=== PATIENT | female | born 1985 | race Caucasian/White ===

== ENCOUNTER → 2024-01-15 | Outpatient (CLI) | payer BC | END | disposition home or self-care (01) | LOC: Rad HDHVI 14:26 | PROVIDERS: ATTEND Internal Medicine Cardiovascular Disease | DX: M79.672 Pain in left foot (principal) | CPT/HCPCS: 73630 ==

== ENCOUNTER → 2024-01-29 | Outpatient (CLI) | payer BC ==
[2024-01-29 12:57] LABS: Creatinine, Urine 88.73 mg/dL (30.0-125.0)
[2024-01-29 13:00] LABS: Alanine Aminotransferase 103 U/L (7-40); Albumin 4.2 g/dL (3.2-4.8); Alkaline Phosphatase 125 U/L (46-116); Anion Gap 5 (5-15); Aspartate Aminotransferase 236 U/L (13-40); BUN/Creatinine Ratio 10.9 (10.0-20.0); Bilirubin, Total 1.5 mg/dL (0.2-1.0); Blood Urea Nitrogen 7 mg/dL (9-23); Calcium 9.5 mg/dL (8.5-10.1); Carbon Dioxide 24 mmol/L (20-30); Chloride 106 mmol/L (98-107); Cholesterol 159 mg/dL (< 200); Glucose 108 mg/dL (74-106); HDL Cholesterol 72 mg/dL (40-59); LDL Cholesterol 74 mg/dL (< 100); Sodium 135 mmol/L (136-145); Total Protein 6.9 g/dL (5.7-8.2); Triglycerides 137 mg/dL (< 150)
== END | disposition home or self-care (01) ==
LOC: LAB 11:37
PROVIDERS: ATTEND Internal Medicine
DX: E11.9 Type 2 diabetes mellitus without complications (principal)
CPT/HCPCS: 36415; 80053; 80061; 82043; 82570; 83036

== ENCOUNTER → 2024-01-31 | Outpatient (CLI) | payer BC ==
[2024-01-31 12:31] LABS: Leuteinizing Hormone 18.3 IU/L
[2024-01-31 12:32] LABS: Albumin 4.1 g/dL (3.2-4.8); Bilirubin, Direct 0.3 mg/dL (<0.3); Bilirubin, Total 0.6 mg/dL (0.2-1.0); Follicle Stimulating Hormone 7.05 IU/L (SEE BELOW); Prolactin 24.28 ng/mL (2.8-29.2); Total Protein 6.5 g/dL (5.7-8.2)
[2024-01-31 12:50] LABS: Folate (Folic Acid) > 48.00 ng/mL (>5.38)
[2024-02-01 08:06] LABS: RPR Non Reactive (Non Reactive)
== END | disposition home or self-care (01) ==
LOC: LAB 11:02
PROVIDERS: ATTEND Internal Medicine
DX: I10 Essential (primary) hypertension (principal); E11.9 Type 2 diabetes mellitus without complications; G90.522 Complex regional pain syndrome I of left lower limb; M94.20 Chondromalacia, unspecified site
CPT/HCPCS: 36415; 80076; 82607; 82672; 82746; 83001; 83002; 84144; 84146; 84403; 84443; 86592

== ENCOUNTER 2024-03-08 04:48 | Emergency (ER) | payer BC ==
[~2024-03-08] VITALS: Ht 160 cm; Wt 70.0 kg
[2024-03-08 05:44] VITALS: BP 141/84; PULSE 110; RESP 18; TEMP 98.3; O2SAT 99
[2024-03-08] MEDS ORDERED: ACE3T PO (05:44)
[2024-03-08] MEDS: ACETAMINOPHEN/CODEINE#3 (300/30mg) TAB PO ONE (05:48)
== END 2024-03-08 05:58 | disposition home or self-care (01) ==
LOC: ER 04:48
DX: S82.402A Unspecified fracture of shaft of left fibula, initial encounter for closed fracture (principal); E11.9 Type 2 diabetes mellitus without complications; K21.9 Gastro-esophageal reflux disease without esophagitis; E78.5 Hyperlipidemia, unspecified; I10 Essential (primary) hypertension; Z91.040 Latex allergy status; Z88.6 Allergy status to analgesic agent; Z88.1 Allergy status to other antibiotic agents; Z88.8 Allergy status to other drugs, medicaments and biological substances; W19.XXXA Unspecified fall, initial encounter; Y93.89 Activity, other specified; Y92.89 Other specified places as the place of occurrence of the external cause; Y99.8 Other external cause status
CPT/HCPCS: 29515; 73610

== ENCOUNTER → 2024-04-10 | Outpatient (CLI) | payer BC ==
[~2024-04-10] MED LIST: ACE3T PO
== END | disposition home or self-care (01) ==
LOC: LAB 11:03
PROVIDERS: ATTEND Internal Medicine
DX: R06.02 Shortness of breath (principal)
CPT/HCPCS: 36415; 85379

== ENCOUNTER → 2024-07-21 | Outpatient (CLI) | payer BC ==
[2024-07-21 14:04] LABS: HDL Cholesterol 44 mg/dL (40-59)
[2024-07-21 14:15] LABS: Micro Albumin < 3.0 mg/L (<30.0)
[2024-07-21 14:23] LABS: Folate (Folic Acid) 34.86 ng/mL (>5.38)
[2024-07-21 14:33] LABS: Erythrocyte Sedimentation Rate 5 mm/hr (0-20)
[2024-07-21 14:36] LABS: Cholesterol 263 mg/dL (< 200); Triglycerides 407 mg/dL (< 150)
[2024-07-21 16:04] LABS: Creatinine, Urine 58.92 mg/dL (30.0-125.0)
== END | disposition home or self-care (01) ==
LOC: LAB 13:01
PROVIDERS: ATTEND Internal Medicine
DX: I10 Essential (primary) hypertension (principal); E11.9 Type 2 diabetes mellitus without complications; E78.5 Hyperlipidemia, unspecified; N93.9 Abnormal uterine and vaginal bleeding, unspecified; N94.9 Unspecified condition associated with female genital organs and menstrual cycle
CPT/HCPCS: 36415; 80061; 82043; 82570; 82607; 82746; 83036; 84443; 85652

== ENCOUNTER → 2024-09-01 | Outpatient (CLI) | payer BC ==
[2024-09-01 12:42] LABS: Alanine Aminotransferase 12 U/L (7-40); Albumin 4.5 g/dL (3.2-4.8); Alkaline Phosphatase 85 U/L (46-116); Anion Gap 5 (5-15); BUN/Creatinine Ratio 16.3 (10.0-20.0); Blood Urea Nitrogen 14 mg/dL (9-23); Calcium 9.8 mg/dL (8.7-10.4); Carbon Dioxide 28 mmol/L (20-31); Chloride 105 mmol/L (98-107); Glucose 85 mg/dL (74-106); HDL Cholesterol 51 mg/dL (40-59); Potassium 3.8 mmol/L (3.5-5.1); Sodium 138 mmol/L (136-145)
[2024-09-01 12:43] LABS: Bilirubin, Total 0.3 mg/dL (0.2-1.0); Total Protein 6.7 g/dL (5.7-8.2)
[2024-09-01 12:54] LABS: Aspartate Aminotransferase 10 U/L (13-40); Bilirubin, Direct < 0.1 mg/dL (<0.3); Cholesterol 211 mg/dL (< 200); LDL Cholesterol 132 mg/dL (< 100); Triglycerides 344 mg/dL (< 150)
== END | disposition home or self-care (01) ==
LOC: LAB 11:19
PROVIDERS: ATTEND Internal Medicine
DX: E11.9 Type 2 diabetes mellitus without complications (principal); D64.9 Anemia, unspecified
CPT/HCPCS: 36415; 80048; 80061; 80076; 82306

== ENCOUNTER → 2024-09-15 | Outpatient (CLI) | payer BC ==
[2024-09-15 14:01] LABS: Follicle Stimulating Hormone 2.67 IU/L (SEE BELOW); Leuteinizing Hormone 2.2 IU/L
[2024-09-15 14:02] LABS: Alanine Aminotransferase 19 U/L (7-40); Alkaline Phosphatase 86 U/L (46-116); Aspartate Aminotransferase 26 U/L (13-40); Bilirubin, Total 0.4 mg/dL (0.2-1.0); Total Protein 7.4 g/dL (5.7-8.2)
[2024-09-15 14:06] LABS: Bilirubin, Direct < 0.1 mg/dL (<0.3)
== END | disposition home or self-care (01) ==
LOC: LAB 12:36
PROVIDERS: ATTEND Internal Medicine
DX: E28.2 Polycystic ovarian syndrome (principal); E78.5 Hyperlipidemia, unspecified
CPT/HCPCS: 36415; 80076; 82670; 82672; 83001; 83002; 84402; 84403

== ENCOUNTER 2024-10-08 23:59 | Inpatient (IN) | payer BC ==
[~2024-10-08] VITALS: Ht 177.8 cm; Wt 109.0 kg
[2024-10-09] VITALS (11 sets, daily range): BP systolic 100–110; BP diastolic 54–66; PULSE 69–112; RESP 16–22; TEMP 97.8; O2SAT 91–99
--- NOTE | 2024-10-09 00:42 | ED.PDOC ---
SOB-HPI HPI Comments 39 year old female presents to the ED with a chief complaint of shortness of breath onset 3 days. Patient states she began experiencing shortness of breath 3 days ago and noticed it worsen today. She also noted chest pain, described as a tightness sensation. Patient used father in law's albuterol inhaler with no relief of symptoms, states O2 sat at home was in the 80s, HR 163. BP has been low past couple days, last BP was 70/40, has not taken HTN medication due to low BP. Upon ED arrival, O2 sat was 88% RA, placed 2L NC improved to 93%. PMHx HTN, HLD, DM, Gerd. Denies nausea, vomiting, diarrhea, dizziness, headache, blurry vision, abdominal pain, fever, chills. No other symptoms or modifying factors present at this time. Chief Complaint: Shortness of Breath Time Seen by MD: 00:29 Primary Care Provider: Dr. Esteban Reviewed notes: Medications, Allergies Information Source: Patient, Spouse Mode of Arrival: Wheelchair Severity: Moderate Timing: Days Duration: Since onset Context: At Rest PE Risk Factors: None History of: None Prehospital treatment: None Modifying Factors: Nothing Associated Signs and Symptoms: Chest Pain Quality: Tightness Radiation: No Radiation Past Medical History PAST MEDICAL HISTORY: DM, GERD, High Lipids, HTN Surgical History: Denies all surgeries BRICK LOADER History: No Pertinent BRICK LOADER History Family History Family History: Reviewed,noncontributory to illness, No family hx of Cancer, No family hx of DM, No family hx of Heart zan, No family hx of HTN, No family hx ofKidney zan, No family hx of Liver zan, No family hx of Lung zan, No family hx of Stroke Social History Smoker: Non-Smoker Alcohol: Denies ETOH Use Drugs: Denies Drug Use Lives In: Home Constitutional: denies: chills, diaphoresis, fatigue, fever, malaise, sweats, weakness, others EENTM: denies: blurred vision, double vision, ear bleeding, ear discharge, ear drainage, ear pain, ear ringing, eye pain, eye redness, hearing loss, mouth pain, mouth swelling, nasal discharge, nose bleeding, nose congestion, nose pain, photophobia, tearing, throat pain, throat swelling, voice changes, others Respiratory: reports: shortness of breath; denies: cough, hemoptysis, orthopnea, SOB at rest, SOB with excertion, stridor, wheezing, others Cardiovascular: reports: chest pain; denies: dizzy spells, diaphoresis, Dyspnea on exertion, edema, irregular heart beat, left arm pain, lightheadedness, palpitations, PND, syncope, others Gastrointestinal: denies: abdomen distended, abdominal pain, blood streaked bowels, constipated, diarrhea, dysphagia, difficulty swallowing, hematemesis, melena, nausea, poor appetite, poor fluid intake, rectal bleeding, rectal pain, vomiting, others Genitourinary: denies: abnormal vagina bleeding, burning, dyspareunia, dysuria, flank pain, frequency, hematuria, incontinence, pain, , vagina discharge, urgency, others Neurological: denies: dizziness, fainting, headache, left sided numbness, left sided weakness, numbness, paresthesia, pre-existing deficit, right sided numbness, right sided weakness, seizure, speech problems, tingling, tremors, weakness, others Musculoskeletal: denies: back pain, gout, joint pain, joint swelling, muscle pain, muscle stiffness, neck pain, others Integumetry: denies: bruises, change in color, change in hair/nails, dryness, laceration, lesions, lumps, rash, wounds, others Allergic/Immunocompromised: denies: Difficulty Healing, Frequent Infections, Hives, Itching, others Hematologic/Lymphatic: denies: anemia, blood clots, easy bleeding, easy bruising, swollen glands, others Endocrine: denies: excessive hunger, excessive sweating, excessive thirst, excessive urination, flushing, intolerance to cold, intolerance to heat, unexplained weight gain, unexplained weight loss, others Psychiatric: denies: anxiety, bipolar disorder, depression, hopeless, panic disorder, schizophrenia, sleepless, suicidal, others All Other Systems: Reviewed and Negative Physical Exam General Appearance: No Apparent Distress, Normal HEENT: Normal ENT Inspection, Pharynx Normal, TMs Normal Neck: Full Range of Motion, Non-Tender, Normal, Normal Inspection Respiratory: Chest Non-Tender, Lungs Clear, No Accessory Muscle Use, No Respiratory Distress, Normal Breath Sounds Cardiovascular: No Edema, No JVD, No Murmur, No Gallop, Normal Peripheral Pulses, Regular Rate/Rhythm Breast Exam: Deferred Gastrointestinal: No Organomegaly, Non Tender, No Pulsatile Mass, Normal Bowel Sounds, Soft Genitalia: Deferred Pelvic: Deferred Rectal: Deferred Extremities: No calf tenderness, Normal capillary refill, Normal inspection, Normal range of motion, Non-tender, No pedal edema Musculoskeletal : Apperance: Normal Neurologic: Alert, data miner II-XII nml as Tested, No Motor Deficits, Normal Affect, Normal Mood, No Sensory Deficits Cerebellar Function: Normal Reflexes: Normal Skin: Dry, Normal Color, Warm Lymphatic: No Adenopathy Was a procedure done? Was a procedure done?: No Differential Dx Differential Diagnosis: CHF, URI, Other Comments Differential diagnosis includes but is not limited to: asthma, pneumonia, congestive heart failure, pleural effusion, empyema, pulmonary embolus, and others X-Ray, Labs, Meds, VS Vital Signs Date Time Temp Pulse Resp B/P (MAP) Pulse Ox O2 Delivery O2 Flow Rate FiO2 10/09/24 00:37 18 88 Room Air* 0 21 10/09/24 00:27 123 10/09/24 00:24 98.8 126 18 112/59 (76) 88 Lab Test 10/09/24 01:44 10/09/24 00:48 10/09/24 00:32 Range/Units Troponin I High Sensitivity 6 5 </=34 ng/L White Blood Count 9.1 4.4-10.8 10^3/uL Red Blood Count 3.50 L 4.0-5.20 10^6/uL Hemoglobin 11.5 L 12.2-16.2 g/dL Hematocrit 34.5 L 36.0-46.0 % Mean Corpuscular Volume 98.7 80.0-100.0 fL Mean Corpuscular Hemoglobin 32.9 H 28.0-32.0 pg Mean Corpuscular Hemoglobin Concent 33.3 32.0-36.0 g/dL Red Cell Distribution Width 12.8 11.8-14.3 % Platelet Count 191 140-450 10^3/uL Mean Platelet Volume 7.8 6.9-10.8 fL Neutrophils (%) (Auto) 82.7 H 37.0-80.0 % Lymphocytes (%) (Auto) 8.0 L 10.0-50.0 % Monocytes (%) (Auto) 7.3 0.0-12.0 % Eosinophils (%) (Auto) 1.4 0.0-7.0 % Basophils (%) (Auto) 0.6 0.0-2.0 % Neutrophils # (Auto) 7.5 1.6-8.6 10 ^3/uL Lymphocytes # (Auto) 0.7 0.4-5.4 10 ^3/uL Monocytes # (Auto) 0.7 0-1.3 10 ^3/uL Eosinophils # (Auto) 0.1 0-0.8 10 ^3/uL Basophils # (Auto) 0.1 0-0.2 10 ^3/uL Nucleated Red Blood Cells 0.0 % Prothrombin Time 10.2 9.3-11.8 sec Prothrombin Time INR 0.96 0.9-1.15 Activated Partial Thromboplast Time 32.8 24.5-34.5 SEC D-Dimer, Quantitative < 0.19 0.0-0.49 mg/L FEU Sodium Level 133 L 136-145 mmol/L Potassium Level 3.9 3.5-5.1 mmol/L Chloride Level 102 98-107 mmol/L Carbon Dioxide Level 21 20-31 mmol/L Anion Gap 10 5-15 Blood Urea Nitrogen 13 9-23 mg/dL Creatinine 0.82 0.550-1.02 mg/dL Glomerular Filtration Rate Calc 93 >90 mL/min BUN/Creatinine Ratio 15.9 10.0-20.0 Serum Glucose 159 H 74-106 mg/dL Calcium Level 9.9 8.7-10.4 mg/dL Total Bilirubin 0.7 0.2-1.0 mg/dL Aspartate Amino Transferase (AST) 9 L 13-40 U/L Alanine Aminotransferase (ALT) 15 7-40 U/L Alkaline Phosphatase 74 46-116 U/L B-Type Natriuretic Peptide 479.68 0-100 pg/mL Total Protein 6.9 5.7-8.2 g/dL Albumin 4.7 3.2-4.8 g/dL Beta HCG, Quantitative 1.3 L 1.5-4.2 mIU/mL Influenza Type A Antigen Negative Negative Influenza Type B Antigen Negative Negative SARS-CoV-2 Antigen (Rapid) Negative NEGATIVE [facility] [id number] [place] [id number] Ph: [phone] DIAGNOSTIC IMAGING Diagnostic Imaging Report : [id number] Signed PATIENT: MAGALY CALZADA ACCT: [id number] UNIT: [id number] : 1985 LOC: ER ROOM / BED: / AGE / SEX: 39 / F ADM STATUS: REG ER SERVICE ORDERING PHYSICIAN: DANY DUMONT MD PROCEDURE(s): CXRP - CHEST PORTABLE REASON: SOB ORDER NUMBER(s): [id number], ACCESSION NUMBER(s): [id number] CHEST RADIOGRAPH Indication: SOB Technique: Single frontal view of the chest was obtained COMPARISON: None FINDINGS: Lines and Tubes: None Lungs: There are infiltrates in the left upper and lower lobes and right lower lobe consistent with pneumonia. Pleura: No effusion. No pneumothorax. Cardiomediastinal contours: Unremarkable Bones: Unremarkable IMPRESSION: Infiltrates in e left upper and lower lobes and right lower lobe consistent with pneumonia. ATED BY: MEÑO METCALF MD DICTATED DATE/TIME: 10/09/24118 SIGNED BY: MEÑO METCALF MD SIGNED DATE/TIME: 10/09/24118 CC: Time of 1ST Reevaluation: 00:59 Reevaluation 1ST: Unchanged Time of 2ND Reevaluation: 02:37 Reevaluation 2ND: Unchanged Patient Education/Counseling: Diagnosis, Treatment, Prognosis Family Education/Counseling: Diagnosis, Treatment, Prognosis Additional Information The following tests were ordered, and results were reviewed by me: TROP -x3, CBC, CMP, BNP, PTPTT, D-DIMER, XY CHEST, BETA HCG, COVID, RAPID INFLUENZA A&B Additional Information was gathered from interviewing the following independent historians: I reviewed and agreed with the following test results read by other providers: xy chest I discussed treatment and results with medical personnel and: patient, Departure 1 Departure Time of Disposition: 02:37 Impression: Primary Impression: Respiratory failure with hypoxia Additional Impression: Multifocal pneumonia Disposition: ADMITTED INPATIENT Admit to: Med Surg (39-year-old female) Condition: Guarded Comments Shortness of Breath with Hypoxia Chief Complaint: Shortness of breath History of Present Illness: 39-year-old female presents to the Emergency Department with complaints of shortness of breath. Patient has been monitoring her oxygen levels at home with a personal pulse oximeter, noting low readings. Upon arrival to the ED, she was found to be hypoxic with oxygen saturations in the 80s on room air, requiring supplemental oxygen via nasal cannula which improved her saturations to the mid- 90s. Review of Systems: Respiratory: Positive for shortness of breath All other systems reviewed and negative Vital Signs: O2 Saturation: 80s% on room air O2 Saturation: mid-90s% on nasal cannula Physical Exam: Limited physical exam details available from ict business analyst Lab Results: Laboratory workup reported as unremarkable Imaging and Other Relevant Results: Chest X-ray: - Demonstrates multifocal pneumonia - Bilateral patchy infiltrates noted Medical Decision Making: Summary Statement: 39-year-old female presenting with shortness of breath and hypoxia, found to have bilateral multifocal pneumonia on chest imaging. Problem List: 1. Acute hypoxic respiratory failure, 2. Bilateral multifocal pneumonia Differential Diagnosis: Community-acquired pneumonia, COVID-19 pneumonia, Atypical pneumonia, Viral pneumonia ED Course: Patient required supplemental oxygen via nasal cannula. Started on IV antibiotics (Rocephin and azithromycin). Decision made to admit for respiratory failure and pneumonia treatment. Assessment and Plan: 1. Acute Hypoxic Respiratory Failure: - Continue supplemental oxygen via nasal cannula - Monitor oxygen saturation - Admission to hospital for close monitoring 2. Bilateral Multifocal Pneumonia: - Initiated IV Rocephin and azithromycin - Requires inpatient management - Will need serial chest imaging to monitor progression Disposition: Admit to hospital Billing Information: ICD-10: J18.9 - Pneumonia, unspecified organism ICD-10: J96.01 - Acute respiratory failure with hypoxia Critical Care Note Critical Care Time?: Yes (35 min-critical care time only) Critical care comment: Total critical care time: Approximately 36 minutes Due to a high probability of clinically significant, life threatening deterioration, the patient required my highest level of preparedness to intervene emergently and I personally spent this critical care time directly and personally managing the patient. This critical care time included obtaining a history; examining the patient; pulse oximetry; ordering and review of studies; arranging urgent treatment with development of a management plan; evaluation of patient's response to treatment; frequent reassessment; and, discussions with other providers. This critical care time was performed to assess and manage the high probability of imminent, life-threatening deterioration that could result in multi-organ failure. It was exclusive of separately billable procedures and treating other patients. Stability Stability form required: No Heart Score Heart Score: Heart Score Response (Comments) Value History Slightly Suspicious 0 EKG Normal 0 Age <45 0 Risk Factors 1 or 2 risk factors 1 Troponin Normal limit 0 Total 1 I personally scribed for DANY DUMONT MD ([email or web address]) on 10/09/24 at 00:42. Electronically submitted by Sandra Branch ([email or web address]). I personally scribed for DANY DUMONT MD ([email or web address]) on 10/09/24 at 00:47. Electronically submitted by Sandra Branch ([email or web address]). I personally scribed for DANY DUMONT MD ([email or web address]) on 10/09/24 at 02:24. Electronically submitted by Sandra Branch ([email or web address]). DANY DUMONT MD Oct 09, 2024 00:42
[2024-10-09 01:21] LABS: COVID19 ANTIGEN SOFIA FIA NEGATIVE (NEGATIVE)
--- NOTE | 2024-10-09 01:21 | DVH ---
CHEST RADIOGRAPH Indication: SOB Technique: Single frontal view of the chest was obtained COMPARISON: None FINDINGS: Lines and Tubes: None Lungs: There are infiltrates in the left upper and lower lobes and right lower lobe consistent with p neumonia. Pleura: No effusion. No pneumothorax. Cardiomediastinal contours: Unremarkable Bones: Unremarkable IMPRESSION: Infiltrates in e left upper and lower lobes and right lower lobe consistent with pneumonia.
[2024-10-09 01:22] LABS: Rapid Influenza A Negative (Negative); Rapid Influenza B Negative (Negative)
[2024-10-09 01:33] LABS: INR 0.96 (0.9-1.15); Partial Thromboplastin Time 32.8 SEC (24.5-34.5); Prothrombin Time 10.2 sec (9.3-11.8)
[2024-10-09 01:35] LABS: Alanine Aminotransferase 15 U/L (7-40); Albumin 4.7 g/dL (3.2-4.8); Alkaline Phosphatase 74 U/L (46-116); Anion Gap 10 (5-15); BUN/Creatinine Ratio 15.9 (10.0-20.0); Blood Urea Nitrogen 13 mg/dL (9-23); Calcium 9.9 mg/dL (8.7-10.4); Carbon Dioxide 21 mmol/L (20-31); Chloride 102 mmol/L (98-107); Potassium 3.9 mmol/L (3.5-5.1)
[2024-10-09 01:36] LABS: Bilirubin, Total 0.7 mg/dL (0.2-1.0); Total Protein 6.9 g/dL (5.7-8.2)
[2024-10-09 01:37] LABS: Aspartate Aminotransferase 9 U/L (13-40); Glucose 159 mg/dL (74-106); Sodium 133 mmol/L (136-145)
[2024-10-09 01:51] LABS: Basophils # (auto) 0.1 10 ^3/uL (0-0.2); Basophils % (auto) 0.6 % (0.0-2.0); Eosinophils # (auto) 0.1 10 ^3/uL (0-0.8); Eosinophils % (auto) 1.4 % (0.0-7.0); Hematocrit 34.5 % (36.0-46.0); Hemoglobin 11.5 g/dL (12.2-16.2); Lymphocytes # (auto) 0.7 10 ^3/uL (0.4-5.4); Mean Corpuscular Hemoglobin 32.9 pg (28.0-32.0); Mean Corpuscular Hgb Conc. 33.3 g/dL (32.0-36.0); Mean Corpuscular Volume 98.7 fL (80.0-100.0); Monocytes # (auto) 0.7 10 ^3/uL (0-1.3); Monocytes % (auto) 7.3 % (0.0-12.0); Neutrophils # (auto) 7.5 10 ^3/uL (1.6-8.6); Neutrophils % (auto) 82.7 % (37.0-80.0); Platelet Count (auto) 191 10^3/uL (140-450); Red Cell Distribution Width 12.8 % (11.8-14.3); White Blood Cell 9.1 10^3/uL (4.4-10.8)
[2024-10-09] MEDS: cefTRIAXone 1GM/50ML D5W 50 ML IV ONE (03:39)
[2024-10-09] MEDS: SODIUM CHLORIDE 0.9% 1,000 ML IV ONE (03:39)
[2024-10-09] MEDS ORDERED: DEXTROSE (50%) 50ML SYRG IV PRN ×2 (04:30→12:30)
[2024-10-09] MEDS ORDERED: ONDANSETRON HCL 4 MG/2 ML VIAL IV PRN (04:30)
[2024-10-09] MEDS: AZITHROMYCIN 500MG/ 250ML 250 ML IV ONE (04:37)
--- NOTE | 2024-10-09 04:54 | DVHHP2 ---
History of Present Illness Reason for Visit: Shortness of breaths History of Present Illness 39-year-old female presents for evaluation of shortness for breath. Patient presents with having shortness for breath over the past three days with associated chest tightness and a nonproductive cough. Patient also reports having low blood pressure over the past day. Denies fever or chills. No nausea or vomiting. No other acute complaints. Past Medical History Dyslipidemia, hypertension, GERD, diabetes mellitus Past Surgical History Denies Family History Noncontributory Smoke: No ALCOHOL: none Drugs: None Lives: with Family Review of Systems Review of Systems Review of systems are currently negative otherwise addressed in HPI. Allergies: Coded Allergies: Acetaminophen (Verified Allergy, Unknown, 03/08/24) Clindamycin (Verified Allergy, Unknown, 03/08/24) Hydrocodone (Verified Allergy, Unknown, 03/08/24) Latex (Verified Allergy, Unknown, 03/08/24) Losartan (Verified Allergy, Unknown, 03/08/24) Medications Current Medications Medications Dose Ordered Sig/Scott Route Start Time Stop Time Status Last Admin Dose Admin Ceftriaxone Sodium 50 ml @ 100 mls/hr DAILY@09 IV 10/10/24 09:00 Azithromycin 250 ml @ 125 mls/hr DAILY IV 10/10/24 10:00 Apixaban 2.5 mg BID PO 10/09/24 10:00 Gabapentin 400 mg TID PO 10/09/24 06:00 Levetiracetam 1,000 mg BID PO 10/09/24 10:00 Albuterol 2.5 mg Q6HPRN PRN NEB 10/09/24 04:30 Diagnostic Test (Pha) 1 strip Q6HR 10/09/24 06:00 Insulin Human Regular Q6HR SC 10/09/24 06:00 Dextrose 50 ml UD PRN IV 10/09/24 04:30 Ondansetron HCl 4 mg Q4HP PRN IV 10/09/24 04:30 Exam Vital Signs Vital Signs Date Time Temp Pulse Resp B/P (MAP) Pulse Ox O2 Delivery O2 Flow Rate FiO2 10/09/24 03:51 97.6 69 18 96/58 (71) 95 97.6 10/09/24 03:51 Room Air* 0 21 Exam Gen: 39-year-old female in mild distress Skin: Warm, dry, normal color and texture, no rash. HEENT: Normocephalic atraumatic, mucous membranes moist and pink. Neck: Cervical and supraclavicular nodes normal without enlargement, trachea is midline, thyroid gland is normal without masses. Pulmonary: Bilateral rhonchi Cardiac: Regular rate and rhythm. No murmur Abdomen: Soft, nontender, nondistended, bowel sounds present all 4 quadrants, no guarding, no rigidity, no organomegaly. Extremities: No cyanosis, clubbing, no edema Neuro: Cranial nerves II through XII grossly intact, normal affect and speech, no focal motor deficits. Labs/Xrays ORDERING PHYSICIAN: DANY DUMONT MD PROCEDURE(s): CXRP - CHEST PORTABLE REASON: SOB ORDER NUMBER(s): [id number], ACCESSION NUMBER(s): [id number] CHEST RADIOGRAPH Indication: SOB Technique: Single frontal view of the chest was obtained COMPARISON: None FINDINGS: Lines and Tubes: None Lungs: There are infiltrates in the left upper and lower lobes and right lower lobe consistent with pneumonia. Pleura: No effusion. No pneumothorax. Cardiomediastinal contours: Unremarkable Bones: Unremarkable IMPRESSION: Infiltrates in e left upper and lower lobes and right lower lobe consistent with pneumonia. Labs Test 10/09/24 02:40 10/09/24 01:44 10/09/24 00:48 10/09/24 00:32 Range/Units Lactic Acid Level 1.6 0.4-2.0 mmol/L Troponin I High Sensitivity 6 </=34 ng/L White Blood Count 9.1 4.4-10.8 10^3/uL Red Blood Count 3.50 L 4.0-5.20 10^6/uL Hemoglobin 11.5 L 12.2-16.2 g/dL Hematocrit 34.5 L 36.0-46.0 % Mean Corpuscular Volume 98.7 80.0-100.0 fL Mean Corpuscular Hemoglobin 32.9 H 28.0-32.0 pg Mean Corpuscular Hemoglobin Concent 33.3 32.0-36.0 g/dL Red Cell Distribution Width 12.8 11.8-14.3 % Platelet Count 191 140-450 10^3/uL Mean Platelet Volume 7.8 6.9-10.8 fL Neutrophils (%) (Auto) 82.7 H 37.0-80.0 % Lymphocytes (%) (Auto) 8.0 L 10.0-50.0 % Monocytes (%) (Auto) 7.3 0.0-12.0 % Eosinophils (%) (Auto) 1.4 0.0-7.0 % Basophils (%) (Auto) 0.6 0.0-2.0 % Neutrophils # (Auto) 7.5 1.6-8.6 10 ^3/uL Lymphocytes # (Auto) 0.7 0.4-5.4 10 ^3/uL Monocytes # (Auto) 0.7 0-1.3 10 ^3/uL Eosinophils # (Auto) 0.1 0-0.8 10 ^3/uL Basophils # (Auto) 0.1 0-0.2 10 ^3/uL Nucleated Red Blood Cells 0.0 % Prothrombin Time 10.2 9.3-11.8 sec Prothrombin Time INR 0.96 0.9-1.15 Activated Partial Thromboplast Time 32.8 24.5-34.5 SEC D-Dimer, Quantitative < 0.19 0.0-0.49 mg/L FEU Sodium Level 133 L 136-145 mmol/L Potassium Level 3.9 3.5-5.1 mmol/L Chloride Level 102 98-107 mmol/L Carbon Dioxide Level 21 20-31 mmol/L Anion Gap 10 5-15 Blood Urea Nitrogen 13 9-23 mg/dL Creatinine 0.82 0.550-1.02 mg/dL Glomerular Filtration Rate Calc 93 >90 mL/min BUN/Creatinine Ratio 15.9 10.0-20.0 Serum Glucose 159 H 74-106 mg/dL Calcium Level 9.9 8.7-10.4 mg/dL Total Bilirubin 0.7 0.2-1.0 mg/dL Aspartate Amino Transferase (AST) 9 L 13-40 U/L Alanine Aminotransferase (ALT) 15 7-40 U/L Alkaline Phosphatase 74 46-116 U/L B-Type Natriuretic Peptide 479.68 0-100 pg/mL Total Protein 6.9 5.7-8.2 g/dL Albumin 4.7 3.2-4.8 g/dL Beta HCG, Quantitative 1.3 L 1.5-4.2 mIU/mL Influenza Type A Antigen Negative Negative Influenza Type B Antigen Negative Negative SARS-CoV-2 Antigen (Rapid) Negative NEGATIVE Assessment/Plan Assessment/Plan Assessment Multifocal pneumonia Hypotension Diabetes mellitus Early sepsis Plan Admit the patient to Med surge to the hospitalist Resume home medications Rocephin/azithromycin Med nebs Continue treatment per orders. Plan discussed with: Patient My Orders Orders - LORENA PATEL Procedure Category Date Status Time Basic Metabolic Panel LAB 10/10/24 Verified 04:00 Apixaban (Eliquis) PHA 10/09/24 In Process 10:00 Gabapentin Capsule PHA 10/09/24 In Process (Neurontin Capsule) 06:00 Consistent DIET 10/09/24 Transmitted Carb(Ccho)Diabetes Breakfast Levetiracetam Tablet PHA 10/09/24 In Process (Keppra Tablet) 10:00 Albuterol Medneb PHA 10/09/24 In Process (Ventolin Medneb) 04:30 Glucose Blood PHA 10/09/24 In Process (Accu-Chek Comfort 06:00 Insulin R (Human) PHA 10/09/24 In Process (Insulin R) 06:00 Dextrose 50% Syringe PHA 10/09/24 In Process 04:30 Admit ADMIT 10/09/24 Transmitted 04:25 Ondansetron Hcl PHA 10/09/24 In Process (Zofran) 04:30 Complete Blood Count LAB 10/10/24 Verified 04:00 Condition: Stable MARCOS 10/09/24 In Process 04:25 Bedrest With Bathroom MARCOS 10/09/24 In Process Privileg 04:25 Sodium Chloride 0.9% PHA 10/09/24 In Process 04:30 Ceftriaxone 1gm/50ml PHA 10/10/24 In Process D5w (Rocephin) 09:00 Azithromycin 500mg/ PHA 10/10/24 In Process 250ml (Zithromax 50 10:00 Date of Service: Oct 09, 2024 Billing Provider: LORENA PATEL Common Visit Codes: [id number] INP/OBS CARE (HIGH) LORENA PATEL Oct 09, 2024 04:54
[2024-10-09] MEDS: InsuLIN REG 1unit/0.01ml Soln (100units/ml) SC SCH ×2 (06:00→17:14)
[2024-10-09] MEDS: SODIUM CHLORIDE 0.9% 500 ML IV ONE (06:10)
[2024-10-09] MEDS: ACCU-CHEK COMFORT CURVE STRIP VI SCH ×2 (06:15→17:14)
[2024-10-09] MEDS: GABAPENTIN 400 MG CAP PO SCH (06:21)
[2024-10-09] MEDS: ALBUTEROL SULF 2.5 MG/0.5ML(0.5%) NEB SOLN NEB PRN (07:38)
[2024-10-09 08:54] LABS: Urine Bacteria FEW /hpf (None Seen); Urine Blood Negative /uL (Negative); Urine Clarity Clear (Clear); Urine Color Yellow (Yellow); Urine Hyaline Cast FEW /lpf (0 - 2); Urine Protein, UAD Negative (Negative); Urine Specific Gravity 1.017 (1.001-1.035); Urine Squamous Epithelial Cell FEW /hpf (<5); Urine Urobilinogen Normal (Negative); Urine WBC 1 /HPF (0-5); Urine pH 5.5 (5.0-9.0)
--- NOTE | 2024-10-09 09:30 | DVHPNRES ---
Progress Note Date Seen: Oct 09, 2024 Resident Creating Document: JULI BASSETT RESIDENT Medical Necessity Reason Pt with a Central, PICC or Fol: No Subjective Review of Systems HPI-Patient is 39 years old female with past medical history of hypertension, diabetes mellitus type 2, hyperlipidemia, GERD, suspected pulmonary hypertension, history of tachycardia, seizure disorder, chronic regional pain syndrome came with a complaint of shortness of breaths for last 3-4 days and chest tightness. As per patient she has been having shortness of breaths and chest tightness for last 3-4 days with nonproductive cough. Patient also reported that she has had fever at home up to 103 degree F. patient also endorsed palpitation and hypotensive episode at home BP around 70-80/40-50. Patient refuses any joint pain or swelling, constipation or diarrhea, dysuria, acute dysarthria or rash. Initial lab workup revealed BNP elevated 479, negative for COVID-19 or influenza. Chest p-osx-Tcpigfzyhdt in left upper and lower lobes and right lower lobe consistent with pneumonia. PMH-neurostimulator in the back, PSH- -neurostimulator in the back, Allergy- clindamycin, hydrocodone, latex, losartan Personal History/ Social History- smoker, Patient was seen today at the bedside. Patient Cardiovascular- deny acute chest pain Respiratory deniesr wheezing Gastrointestinal- denies any rectal bleeding, nausea or vomiting Musculoskeletal-denies acute joint swelling or tenderness or redness Neurological- denies acute dysarthria, dysphagia, change in vision Psychiatry- denies depression or SI or HI Skin- denies acute rash or purpura 10/09/2024- Patient was seen today for clinical evaluation. Labs and chart reviewed. Patient with diminished breath sound on bilateral lower lung field. Patient was complaining of worsening shortness of breath. Patient was put on BiPAP. Discontinued ceftriaxone azithromycin, ordered levofloxacin 750 mg IV daily, ordered methylprednisolone 80 mg IV stat, magnesium 1 g IV stat. Ordered ABG for further evaluation and care. Turn patient was taken off BiPAP. Patient was put in Oxymizer 15 liter/minute. Patient's symptoms improved gradually. Objective vital signs Vital Sign Date Time Temp Pulse Resp B/P (MAP) Pulse Ox O2 Delivery O2 Flow Rate FiO2 10/09/24 08:00 98.5 108 24 105/61 (76) 92 98.5 10/09/24 07:41 Simple Mask* 8 60 Total Intake and Output 10/08/24 10/08/24 10/09/24 15:00 23:00 07:00 Intake Total 1300 ml Balance 1300 ml medications Current Medications Medications Dose Ordered Sig/Scott Route Start Time Stop Time Status Last Admin Dose Admin Ceftriaxone Sodium 50 ml @ 100 mls/hr DAILY@09 IV 10/10/24 09:00 Azithromycin 250 ml @ 125 mls/hr DAILY IV 10/10/24 10:00 Apixaban 2.5 mg BID PO 10/09/24 10:00 Gabapentin 400 mg TID PO 10/09/24 06:00 10/09/24 06:21 400 MG Levetiracetam 1,000 mg BID PO 10/09/24 10:00 Albuterol 2.5 mg Q6HPRN PRN NEB 10/09/24 04:30 10/09/24 07:38 2.5 MG Diagnostic Test (Pha) 1 strip Q6HR 10/09/24 06:00 10/09/24 06:15 1 STRIP Insulin Human Regular Q6HR SC 10/09/24 06:00 Dextrose 50 ml UD PRN IV 10/09/24 04:30 Ondansetron HCl 4 mg Q4HP PRN IV 10/09/24 04:30 Examination General examination- awake alert, oriented, conversant HEENT- PEERLA, no acute nasal discharge Cardiovascular- S1-S2 audible, rate and rhythm regular, no murmur Respiratory- diminished breath sound in the bilateral lower lung clark Gastrointestinal-nontender, bowel sound+. Nondistended Musculoskeletal-no acute joint swelling or tenderness or redness# Lower extremity- no leg edema Neurological- cranial nerves intact, no acute dysarthria or dysphagia Psychiatry- denies depression or SI or HI Skin- no acute rash or purpura laboratory and microbiology Laboratory Tests 10/09/24 00:48 Test 10/09/24 00:48 Range/Units Serum Glucose 159 H 74-106 mg/dL Problem List/Assessment/Plan Problem List/Assessment/Plan Assessment #Acute hypoxic respiratory failure likely due to pneumonia Gram-positive versus Gram-negative #Acute anemia Gram-positive versus Gram-negative #Sepsis likely due to pneumonia Chest g-bvx-Dzpynwuyjru in e left upper and lower lobes and right lower lobe consistent with pneumonia. Continue levofloxacin 750 mg IV daily Monitor vitals Ordered ABG Continue BiPAP #Hypertension -soft BP -hold antihypertensive medication #Hyperlipidemia - #Diabetes mellitus type -insulin sliding scale p.r.n. #Chronic sinus tachycardia -continue monitoring #History of seizure disorder -continue levetiracetam 1000 mg by p.o. b.i.d. -seizure precaution #Chronic regional pain syndrome -continue current pain management # history of anxiety, depression -continue monitoring Goals of care/advance care planning; FULL CODE; discussed with the patient >15 minutes PUD prophylaxis: Pantoprazole DVT prophylaxis: Patient on Eliquis Plan discussed with Dr. Perales , nursing staff, patient Total time spent on patient evaluation, chart review, assessment and plan, discussion discussion >35 minutes Plan discussed with: Patient Plan discussed with: Patient, Other (RN) JULI BASSETT RESIDENT Oct 09, 2024 09:30
[2024-10-09] MEDS: APIXABAN 2.5 MG TAB PO SCH (10:09)
[2024-10-09] MEDS: levETIRAcetam 500 MG TAB PO SCH (10:09)
[2024-10-09 10:15] LABS: Basophils # (auto) 0.1 10 ^3/uL (0-0.2); Basophils % (auto) 0.8 % (0.0-2.0); Eosinophils # (auto) 0.1 10 ^3/uL (0-0.8); Eosinophils % (auto) 1.6 % (0.0-7.0); Hematocrit 30.7 % (36.0-46.0); Hemoglobin 10.5 g/dL (12.2-16.2); Lymphocytes # (auto) 0.8 10 ^3/uL (0.4-5.4); Mean Corpuscular Hemoglobin 33.7 pg (28.0-32.0); Mean Corpuscular Hgb Conc. 34.1 g/dL (32.0-36.0); Mean Corpuscular Volume 98.7 fL (80.0-100.0); Monocytes # (auto) 0.6 10 ^3/uL (0-1.3); Monocytes % (auto) 9.2 % (0.0-12.0); Neutrophils # (auto) 5.4 10 ^3/uL (1.6-8.6); Neutrophils % (auto) 77.4 % (37.0-80.0); Platelet Count (auto) 172 10^3/uL (140-450); Red Blood Cells 3.12 10^6/uL (4.0-5.20)
--- NOTE | 2024-10-09 10:40 | ECG ---
[facility] Test Date: 2024-10-09 Test Time: 00:27:25 Pat Name: MAGALY CALZADA Department: ER Room: 0272 Gender: F Fuel Buyer: ALEKSANDR : 1985 Requested By: DANY DUMONT Order Number: [id number] Reading MD: Lewis Miller Measurements Intervals [place] Rate: 123 P: 19 ND: 128 QRS: 54 QRSD: 93 T: 228 QT: 303 QTc: 434 Interpretive Statements Sinus tachycardia Abnormal T, consider ischemia, diffuse leads Electronically Signed On 10-11-2024 17:43:45 PST by Lewis Miller Please click the below link to view image of tracing.
[2024-10-09 11:27] LABS: Chloride 105 mmol/L (98-107)
[2024-10-09 11:28] LABS: Anion Gap 7 (5-15); Carbon Dioxide 22 mmol/L (20-31)
[2024-10-09 11:33] LABS: BUN/Creatinine Ratio 11.7 (10.0-20.0); Blood Urea Nitrogen 9 mg/dL (9-23)
[2024-10-09] MEDS: methylPREDNISolone SOD SUCC 125 MG/2 ML VL IV ONE (11:37)
[2024-10-09] MEDS: MAGNESIUM SULFATE 1GM/100ML 100 ML IV STA (11:37)
[2024-10-09 11:54] LABS: Base Excess -2.8 mmol/L (-2.0-3.0)
[2024-10-09 11:59] LABS: Glucose 155 mg/dL (74-106); Sodium 134 mmol/L (136-145)
[2024-10-09] MEDS: PANTOPRAZOLE 40 MG/10 ML VIAL INJ IV ONE (13:07)
[2024-10-09] MEDS ORDERED: SUCR1TAB PO (20:31)
[2024-10-09] MEDS ORDERED: DULO1CAP6 (20:31)
[2024-10-09] MEDS ORDERED: ONDA-180 PO (20:31)
[2024-10-09] MEDS ORDERED: APIX2.5T PO (20:31)
[2024-10-09] MEDS ORDERED: SILD20TA41 (20:31)
[2024-10-09] MEDS ORDERED: GABA-1250 (20:31)
[2024-10-09] MEDS ORDERED: METO-289 PO (20:31)
[2024-10-09] MEDS ORDERED: LEVE100020 PO (20:31)
[2024-10-09] MEDS ORDERED: PANT40T PO (20:31)
[2024-10-09] MEDS ORDERED: CHLO25CA9 (20:32)
[2024-10-09] MEDS: chlordiazePOXIDE HCL 25 MG CAP PO SCH (21:46)
[2024-10-09] MEDS: INSULIN LANTUS (GLARGINE) 1 /0.01ml (100units/ml) SC SCH (21:50)
[2024-10-10] VITALS (9 sets, daily range): BP systolic 94–128; BP diastolic 56–71; PULSE 96–113; RESP 18–20; TEMP 97.9–98.7; O2SAT 96–100
[2024-10-10 06:45] LABS: Basophils # (auto) 0 10 ^3/uL (0-0.2); Basophils % (auto) 0.1 % (0.0-2.0); Eosinophils # (auto) 0 10 ^3/uL (0-0.8); Hematocrit 30.1 % (36.0-46.0); Hemoglobin 10.1 g/dL (12.2-16.2); Lymphocytes # (auto) 0.4 10 ^3/uL (0.4-5.4); Lymphocytes % (auto) 4.8 % (10.0-50.0); Mean Corpuscular Hemoglobin 33.3 pg (28.0-32.0); Mean Corpuscular Hgb Conc. 33.7 g/dL (32.0-36.0); Mean Corpuscular Volume 98.9 fL (80.0-100.0); Monocytes # (auto) 0.6 10 ^3/uL (0-1.3); Monocytes % (auto) 7.4 % (0.0-12.0); Neutrophils # (auto) 6.8 10 ^3/uL (1.6-8.6); Neutrophils % (auto) 87.7 % (37.0-80.0); Platelet Count (auto) 173 10^3/uL (140-450); Red Blood Cells 3.04 10^6/uL (4.0-5.20); Red Cell Distribution Width 12.8 % (11.8-14.3); White Blood Cell 7.7 10^3/uL (4.4-10.8)
[2024-10-10 07:11] LABS: Chloride 105 mmol/L (98-107); Potassium 4.3 mmol/L (3.5-5.1); Sodium 137 mmol/L (136-145)
[2024-10-10 07:12] LABS: Anion Gap 9 (5-15); Calcium 9.6 mg/dL (8.7-10.4); Carbon Dioxide 23 mmol/L (20-31)
[2024-10-10 07:17] LABS: Blood Urea Nitrogen 9 mg/dL (9-23)
[2024-10-10 07:18] LABS: Magnesium 2.3 mg/dL (1.6-2.6)
[2024-10-10 07:24] LABS: Glucose 156 mg/dL (74-106)
[2024-10-10] MEDS ORDERED: cefTRIAXone 1GM/50ML D5W 50 ML IV SCH (09:00)
[2024-10-10] MEDS: PANTOPRAZOLE 40 MG/10 ML VIAL INJ IV SCH (09:13)
[2024-10-10] MEDS: levoFLOXacin 500MG 100 ML IV SCH (09:28)
[2024-10-10] MEDS ORDERED: AZITHROMYCIN 500MG/ 250ML 250 ML IV SCH (10:00)
--- NOTE | 2024-10-10 18:08 | DVHPNRES ---
Progress Note Date Seen: Oct 10, 2024 Resident Creating Document: JULI BASSETT RESIDENT Medical Necessity Reason Pt with a Central, PICC or Fol: No Subjective Review of Systems HPI-Patient is 39 years old female with past medical history of hypertension, diabetes mellitus type 2, hyperlipidemia, GERD, suspected pulmonary hypertension, history of tachycardia, seizure disorder, chronic regional pain syndrome came with a complaint of shortness of breaths for last 3-4 days and chest tightness. As per patient she has been having shortness of breaths and chest tightness for last 3-4 days with nonproductive cough. Patient also reported that she has had fever at home up to 103 degree F. patient also endorsed palpitation and hypotensive episode at home BP around 70-80/40-50. Patient refuses any joint pain or swelling, constipation or diarrhea, dysuria, acute dysarthria or rash. Initial lab workup revealed BNP elevated 479, negative for COVID-19 or influenza. Chest k-tyb-Lyqktorbach in left upper and lower lobes and right lower lobe consistent with pneumonia. PMH-neurostimulator in the back, PSH- -neurostimulator in the back, Allergy- clindamycin, hydrocodone, latex, losartan Personal History/ Social History- smoker, Patient was seen today at the bedside. Patient Cardiovascular- deny acute chest pain Respiratory deniesr wheezing Gastrointestinal- denies any rectal bleeding, nausea or vomiting Musculoskeletal-denies acute joint swelling or tenderness or redness Neurological- denies acute dysarthria, dysphagia, change in vision Psychiatry- denies depression or SI or HI Skin- denies acute rash or purpura 10/09/2024- Patient was seen today for clinical evaluation. Labs and chart reviewed. Patient reports feeling much better today. Continue levofloxacin, started cefepime 1 g IV daily and doxycycline 100 mg IV b.i.d. for pneumonia. Also started ceftriaxone 1 g IV daily for UTI. Objective vital signs Vital Sign Date Time Temp Pulse Resp B/P (MAP) Pulse Ox O2 Delivery O2 Flow Rate FiO2 10/10/24 16:43 98.0 106 20 105/66 (79) 100 98.0 10/10/24 09:49 Nasal Cannula 5.0 10/10/24 09:49 40 Total Intake and Output 10/09/24 10/09/24 10/10/24 15:00 23:00 07:00 Intake Total 600 ml 900 ml Output Total 800 ml 750 ml 1250 ml Balance -200 ml -750 ml -350 ml medications Current Medications Medications Dose Ordered Sig/Scott Route Start Time Stop Time Status Last Admin Dose Admin Apixaban 2.5 mg BID PO 10/09/24 10:00 10/10/24 09:11 2.5 MG Gabapentin 400 mg TID PO 10/09/24 06:00 10/10/24 14:31 400 MG Levetiracetam 1,000 mg BID PO 10/09/24 10:00 10/10/24 09:11 1,000 MG Albuterol 2.5 mg Q6HPRN PRN NEB 10/09/24 04:30 10/09/24 07:38 2.5 MG Ondansetron HCl 4 mg Q4HP PRN IV 10/09/24 04:30 Levofloxacin/ Dextrose 100 ml @ 100 mls/hr DAILY IV 10/10/24 10:00 10/10/24 09:28 100 MLS/HR Pantoprazole Sodium 40 mg DAILY IV 10/10/24 10:00 10/10/24 09:13 40 MG Diagnostic Test (Pha) 1 strip ACHS 10/09/24 17:00 10/10/24 16:32 1 STRIP Insulin Human Regular ACHS SC 10/09/24 17:00 10/10/24 11:31 3 UNITS Dextrose 50 ml UD PRN IV 10/09/24 12:30 Insulin Glargine 20 units HS SC 10/09/24 22:00 10/09/24 21:50 20 UNITS Chlordiazepoxide HCl 25 mg BID PO 10/09/24 22:00 10/10/24 09:11 25 MG laboratory and microbiology Laboratory Tests 10/10/24 05:46 Test 10/10/24 05:46 Range/Units Serum Glucose 156 H 74-106 mg/dL Microbiology Date/Time Source Procedure Growth Status 10/09/24 02:40 Blood Blood Culture - Preliminary NO GROWTH AFTER 24 HOURS OF INCUBATION. Resulted Problem List/Assessment/Plan Problem List/Assessment/Plan Assessment #Acute hypoxic respiratory failure likely due to pneumonia Gram-positive versus Gram-negative #Acute anemia Gram-positive versus Gram-negative #Sepsis likely due to pneumonia Chest f-ywp-Bvktjuwhavm in e left upper and lower lobes and right lower lobe consistent with pneumonia. -continue cefepime 1 g IV daily Continue doxycycline 100 mg IV b.i.d. Monitor vitals Ordered ABG Continue BiPAP # complicated UTI -continue cefepime as prescribed #Hypertension -soft BP -hold antihypertensive medication #Hyperlipidemia - #Diabetes mellitus type -insulin sliding scale p.r.n. #Chronic sinus tachycardia -continue monitoring #History of seizure disorder -continue levetiracetam 1000 mg by p.o. b.i.d. -seizure precaution #Chronic regional pain syndrome -continue current pain management # history of anxiety, depression -continue monitoring Goals of care/advance care planning; FULL CODE; discussed with the patient >15 minutes PUD prophylaxis: Pantoprazole DVT prophylaxis: Patient on Eliquis Plan discussed with Dr. Perales , nursing staff, patient Total time spent on patient evaluation, chart review, assessment and plan, discussion discussion >35 minutes Plan discussed with: Patient Plan discussed with: Patient, Other My Orders My Orders Orders - JULI BASSETT RESIDENT Procedure Category Date Status Time C-Diff: Collect Next MARCOS 10/09/24 In Process Specimen 18:49 * Dietary Consult CONS 10/09/24 Transmitted 18:49 * District Sales Coordinator CONS 10/09/24 Transmitted Consult Respiratory Culture YUE 10/10/24 Uncollected W/ Gs 06:24 Dietary Evaluation Review Comments: 1. Continue CCHO 60 gm diet as tolerated 2. Encourage continued good oral intakes >75% of meals 3. Appreciate minimum of weekly weights to trend Expected Outcomes/Goals: Weight maintenance, maintain adequate nutrition JULI BASSETT RESIDENT Oct 10, 2024 18:08
[2024-10-10] MEDS: CEFEPIME 1GM/ 50ML 50 ML IV ONE (20:30)
[2024-10-10] MEDS: DOXYCYCLINE 100MG/100ML 100 ML IV ONE (21:34)
[2024-10-11] VITALS (7 sets, daily range): BP systolic 102–126; BP diastolic 62–71; PULSE 71–107; RESP 16–19; TEMP 98.1–98.3; O2SAT 92–98
[2024-10-11] MEDS: CEFEPIME 1GM/ 50ML 50 ML IV SCH (04:19)
[2024-10-11 07:13] LABS: Basophils # (auto) 0 10 ^3/uL (0-0.2); Basophils % (auto) 0.5 % (0.0-2.0); Eosinophils # (auto) 0.2 10 ^3/uL (0-0.8); Eosinophils % (auto) 3.8 % (0.0-7.0); Hematocrit 35.2 % (36.0-46.0); Hemoglobin 11.9 g/dL (12.2-16.2); Lymphocytes # (auto) 1.4 10 ^3/uL (0.4-5.4); Lymphocytes % (auto) 24.2 % (10.0-50.0); Mean Corpuscular Hemoglobin 33.5 pg (28.0-32.0); Mean Corpuscular Hgb Conc. 33.7 g/dL (32.0-36.0); Mean Corpuscular Volume 99.3 fL (80.0-100.0); Monocytes # (auto) 0.6 10 ^3/uL (0-1.3); Monocytes % (auto) 10.2 % (0.0-12.0); Neutrophils # (auto) 3.6 10 ^3/uL (1.6-8.6); Neutrophils % (auto) 61.3 % (37.0-80.0); Nucleated Red Blood Cells % 0.1 %; Platelet Count (auto) 235 10^3/uL (140-450); Red Blood Cells 3.54 10^6/uL (4.0-5.20); Red Cell Distribution Width 13.3 % (11.8-14.3); White Blood Cell 5.9 10^3/uL (4.4-10.8)
[2024-10-11 07:38] LABS: Calcium 9.6 mg/dL (8.7-10.4); Chloride 104 mmol/L (98-107); Potassium 3.6 mmol/L (3.5-5.1); Sodium 138 mmol/L (136-145)
[2024-10-11 07:39] LABS: Anion Gap 9 (5-15); Carbon Dioxide 25 mmol/L (20-31)
[2024-10-11 07:44] LABS: BUN/Creatinine Ratio 11.1 (10.0-20.0); Glucose 88 mg/dL (74-106)
[2024-10-11 07:45] LABS: Blood Urea Nitrogen 7 mg/dL (9-23); Magnesium 2.2 mg/dL (1.6-2.6)
[2024-10-11] MEDS: DOXYCYCLINE 100MG/100ML 100 ML IV SCH (09:22)
[2024-10-11] MEDS ORDERED: DOXY100C79 PO (12:25)
--- NOTE | 2024-10-11 13:22 | DVHDSRES ---
Discharge Summary Date of Admission Resident Creating Document: JULI BASSETT RESIDENT Oct 09, 2024 at 04:25 Date of Discharge: Oct 11, 2024 Admitting Diagnosis Acute hypoxic respiratory failure likely due to pneumonia Gram-positive versus Gram-negative Labs/Diagnostic Data: Laboratory Results Test 10/11/24 06:34 10/11/24 06:17 10/09/24 11:31 10/09/24 10:03 POC Glucose 91 mg/dl (70-106) White Blood Count 5.9 10^3/uL (4.4-10.8) Red Blood Count 3.54 10^6/uL (4.0-5.20) Hemoglobin 11.9 g/dL (12.2-16.2) Hematocrit 35.2 % (36.0-46.0) Mean Corpuscular Volume 99.3 fL (80.0-100.0) Mean Corpuscular Hemoglobin 33.5 pg (28.0-32.0) Mean Corpuscular Hemoglobin Concent 33.7 g/dL (32.0-36.0) Red Cell Distribution Width 13.3 % (11.8-14.3) Platelet Count 235 10^3/uL (140-450) Mean Platelet Volume 7.5 fL (6.9-10.8) Neutrophils (%) (Auto) 61.3 % (37.0-80.0) Lymphocytes (%) (Auto) 24.2 % (10.0-50.0) Monocytes (%) (Auto) 10.2 % (0.0-12.0) Eosinophils (%) (Auto) 3.8 % (0.0-7.0) Basophils (%) (Auto) 0.5 % (0.0-2.0) Neutrophils # (Auto) 3.6 10 ^3/uL (1.6-8.6) Lymphocytes # (Auto) 1.4 10 ^3/uL (0.4-5.4) Monocytes # (Auto) 0.6 10 ^3/uL (0-1.3) Eosinophils # (Auto) 0.2 10 ^3/uL (0-0.8) Basophils # (Auto) 0 10 ^3/uL (0-0.2) Nucleated Red Blood Cells 0.1 % Sodium Level 138 mmol/L (136-145) Potassium Level 3.6 mmol/L (3.5-5.1) Chloride Level 104 mmol/L (98-107) Carbon Dioxide Level 25 mmol/L (20-31) Anion Gap 9 (5-15) Blood Urea Nitrogen 7 mg/dL (9-23) Creatinine 0.63 mg/dL (0.550-1.02) Glomerular Filtration Rate Calc 116 mL/min (>90) BUN/Creatinine Ratio 11.1 (10.0-20.0) Serum Glucose 88 mg/dL (74-106) Calcium Level 9.6 mg/dL (8.7-10.4) Magnesium Level 2.2 mg/dL (1.6-2.6) Vitamin D 25-Hydroxy 36.5 ng/mL (30.0-100) Blood Gas Specimen Type Arterial Blood Gas Sample Site Left radial Blood Gas Patient Temperature 37.0 Arterial Blood Date Drawn [id number] Arterial Blood pH 7.439 (7.350-7.450) Arterial Blood Partial Pressure CO2 30.9 mmHg (32.0-45.0) Arterial Blood Partial Pressure O2 66.3 mmHg (83.0-108.0) Arterial Blood HCO3 20.5 mmol/L (21.0-28.0) Arterial Blood Oxygen Saturation 92.8 % (94.0-98.0) Arterial Blood Base Excess -2.8 mmol/L (-2.0-3.0) Arterial Blood Oxyhemoglobin 92.3 % (94.0-98.0) Arterial Blood Carboxyhemoglobin 0.2 % (0.5-1.5) Arterial Blood Methemoglobin 0.3 % (0.0-1.5) Rebel Test Yes Blood Gas Total Hemoglobin 11.50 g/dL (12.0-16.0) Blood Gas Liter Flow 10.00 Blood Gas Modality Oxymizer FiO2 % 66.0 Hemoglobin A1c 5.3 % A1C (<5.7) Thyroid Stimulating Hormone (TSH) 1.07 uIU/mL (0.55-4.78) Test 10/09/24 08:31 10/09/24 02:40 10/09/24 01:44 10/09/24 00:48 Urine Color Yellow (Yellow) Urine Clarity Clear (Clear) Urine pH 5.5 (5.0-9.0) Urine Specific [place] 1.017 (1.001-1.035) Urine Protein Negative (Negative) Urine Ketones Negative (Negative) Urine Blood Negative /uL (Negative) Urine Nitrite Negative (Negative) Urine Bilirubin Negative (Negative) Urine Urobilinogen Normal mg/dL (Negative) Urine Leukocyte Esterase Negative /uL (Negative) Urine RBC 1 /hpf (0 - 4) Urine Microscopic WBC 1 /HPF (0-5) Urine Squamous Epithelial Cells Few /hpf (<5) Urine Bacteria Few /hpf (None Seen) Urine Hyaline Casts Few /lpf (0 - 2) Urine Glucose Normal mg/dL (Normal) Lactic Acid Level 1.6 mmol/L (0.4-2.0) Troponin I High Sensitivity 6 ng/L (</=34) Prothrombin Time 10.2 sec (9.3-11.8) Prothrombin Time INR 0.96 (0.9-1.15) Activated Partial Thromboplast Time 32.8 SEC (24.5-34.5) D-Dimer, Quantitative < 0.19 mg/L FEU (0.0-0.49) Total Bilirubin 0.7 mg/dL (0.2-1.0) Aspartate Amino Transferase (AST) 9 U/L (13-40) Alanine Aminotransferase (ALT) 15 U/L (7-40) Alkaline Phosphatase 74 U/L (46-116) B-Type Natriuretic Peptide 479.68 pg/mL (0-100) Total Protein 6.9 g/dL (5.7-8.2) Albumin 4.7 g/dL (3.2-4.8) Beta HCG, Quantitative 1.3 mIU/mL (1.5-4.2) Test 10/09/24 00:32 Influenza Type A Antigen Negative (Negative) Influenza Type B Antigen Negative (Negative) SARS-CoV-2 Antigen (Rapid) Negative (NEGATIVE) Other Laboratory Tests 10/11/24 06:17 Brief Hx & Hospital Course: HPI-Patient is 39 years old female with past medical history of hypertension, diabetes mellitus type 2, hyperlipidemia, GERD, suspected pulmonary hypertension, history of tachycardia, seizure disorder, chronic regional pain syndrome came with a complaint of shortness of breaths for last 3-4 days and chest tightness. As per patient she has been having shortness of breaths and chest tightness for last 3-4 days with nonproductive cough. Patient also reported that she has had fever at home up to 103 degree F. patient also endorsed palpitation and hypotensive episode at home BP around 70-80/40-50. Patient refuses any joint pain or swelling, constipation or diarrhea, dysuria, acute dysarthria or rash. Initial lab workup revealed negative for COVID-19 or influenza. Chest y-wld-Sernutxlmsl in left upper and lower lobes and right lower lobe consistent with pneumonia. Hospital course-patient came to the hospital with a complaint of shortness of breaths and chest tightness. Patient was admitted to the hospital due to acute hypoxic respiratory failure likely due to pneumonia. Initial lab workup revealed negative for COVID-19 or influenza. Chest j-wpt-Ljiessapdun in left upper and lower lobes and right lower lobe consistent with pneumonia. Patient was treated conservatively with IV antibiotic. Patient was put on BiPAP temporarily for worsening hypoxic episode. Following that patient was on Oxymizer and gradually switched to NC O2. Patient was breathing well in room air maintaining oxygen saturation 98%. Patient denied any shortness of breath on discharge. Patient was prescribed doxycycline 100 mg p.o. b.i.d. for 7 days. Patient's meds were sent to the pharmacy electronically. Patient was advised to follow up with the primary care physician in 1 week. Patient was hemodynamically stable on discharge and breathing well in room air without a any distress. Diagnosis #Acute hypoxic respiratory failure likely due to pneumonia Gram-positive versus Gram-negative #Acute anemia Gram-positive versus Gram-negative #Sepsis likely due to pneumonia # complicated UTI # history of Hypertension #Hyperlipidemia #Diabetes mellitus type #Chronic sinus tachycardia #History of seizure disorder #Chronic regional pain syndrome # history of anxiety, depression Discharge plan Doxycycline 100 mg p.o. b.i.d. for 7 days Please resume home medications Please follow up with the primary care physician in 1 week Please be compliant with the medications Operations or Procedures [place] [id number] Ph: [phone] DIAGNOSTIC IMAGING Diagnostic Imaging Report : [id number] Signed PATIENT: MAGALY CALZADA ACCT: [id number] UNIT: [id number] : 1985 LOC: ER ROOM / BED: / AGE / SEX: 39 / F ADM STATUS: REG ER SERVICE 0036 ORDERING PHYSICIAN: DANY DUMONT MD PROCEDURE(s): CXRP - CHEST PORTABLE REASON: SOB ORDER NUMBER(s): [id number], ACCESSION NUMBER(s): [id number] CHEST RADIOGRAPH Indication: SOB Technique: Single frontal view of the chest was obtained COMPARISON: None FINDINGS: Lines and Tubes: None Lungs: There are infiltrates in the left upper and lower lobes and right lower lobe consistent with pneumonia. Pleura: No effusion. No pneumothorax. Cardiomediastinal contours: Unremarkable Bones: Unremarkable IMPRESSION: Infiltrates in e left upper and lower lobes and right lower lobe consistent with pneumonia. ATED BY: MEÑO METCALF MD DICTATED DATE/TIME: 10/09/24118 SIGNED BY: MEÑO METCALF MD SIGNED DATE/TIME: 10/09/24118 CC: Condition at Discharge: Stable (RN) Final Diagnosis/Problems List #Acute hypoxic respiratory failure likely due to pneumonia Gram-positive versus Gram-negative #Acute pneumonia Gram-positive versus Gram-negative #Sepsis likely due to pneumonia # complicated UTI #Hypertension #Hyperlipidemia #Diabetes mellitus type #Chronic sinus tachycardia #History of seizure disorder #Chronic regional pain syndrome # history of anxiety, depression Discharge Disposition: Home Discharge Instruct/Medications Diet: Consistent carbohydrate, Cardiac 2g Na,low cholest Activity: See Comment Activity comment: Patient wheelchair-bound, ambulation as tolerated or on wheelchair Follow Up/Referral: Please follow up with your primary care physician in 1 week Please be compliant with the medications Resume home medications Medications: Doxycycline 100 mg by mouth 2 times a day for 7 days Please resume home medications Discharge Statement: "Patient was advised to return to the ER or call 911 if any headaches, dizziness, shortness of breath, chest pain, abdominal pain, bleeding, fevers, or worsening of medical condition. Patient was counseled about treatment plan, medications, possible side effects, patientverbalized understanding. All questions were answered to the best of my ability. This discharge took greater then 30 minutes in planning, reviewing documentation, counseling the patient, and discussing with other team members." ASSESSMENT ASSESSMENT Assessment Acute hypoxic respiratory failure likely due to pneumonia Gram-positive versus g neck JULI BASSETT RESIDENT Oct 11, 2024 13:22
[2024-10-11] MEDS: cefTRIAXone 1GM/50ML D5W 50 ML IV ONE (13:47)
[2024-10-12] MEDS ORDERED: cefTRIAXone 1GM/50ML D5W 50 ML IV SCH (09:00)
== END 2024-10-11 16:50 | disposition home or self-care (01) | DRG 871 ==
LOC: ER 10-09 00:01 → OVERFLOW 10-09 04:25 → WEST WING 10-09 18:20
PROVIDERS: ADMIT Student in an Organized Health Care Education/Training Program; ATTEND Emergency Medicine
PROC: 5A09357 Assistance with Respiratory Ventilation, Less than 24 Consecutive Hours, Continuous Positive Airway Pressure (ICD-10-PCS; principal; 2024-10-09)
DX: A41.50 Gram-negative sepsis, unspecified (principal); J15.69 Pneumonia due to other Gram-negative bacteria; J96.01 Acute respiratory failure with hypoxia; J15.9 Unspecified bacterial pneumonia; E11.9 Type 2 diabetes mellitus without complications; D64.9 Anemia, unspecified; I10 Essential (primary) hypertension; G40.909 Epilepsy, unspecified, not intractable, without status epilepticus; E78.5 Hyperlipidemia, unspecified; G89.4 Chronic pain syndrome; K21.9 Gastro-esophageal reflux disease without esophagitis; F32.A Depression, unspecified; F41.9 Anxiety disorder, unspecified; Z79.899 Other long term (current) drug therapy; Z88.1 Allergy status to other antibiotic agents; Z88.6 Allergy status to analgesic agent; Z88.5 Allergy status to narcotic agent; Z91.040 Latex allergy status; Z79.4 Long term (current) use of insulin; Z99.3 Dependence on wheelchair
CPT/HCPCS: 36415; 36600; 71045; 80048; 80053; 81001; 82306; 82805; 82962; 83036; 83605; 83735; 83880; 84443; 84484; 84702; 85025; 85379; 85610; 85730; 87040; 87426; 87804; 93005; 94660; 96365; 99291; G0378; J1815; J1956; J2470